=== PATIENT | female | born 1945 | race Caucasian/White ===

== ENCOUNTER 2017-03-16 07:34 | Emergency (ER) | payer MEDICARE, MEDICAID ==
[2017-03-16 07:51] VITALS: BP 145/85
--- NOTE | 2017-03-16 08:50 | UC ---
Abdominal Pain Female HPI - HPI Summary HPI Summary: 71 yo female with intermittent vomiting x 4 weeks estimates a 15 pound wt loss in that time no fever or chills denies abd pain some diarrhea she had a hx of endometrial cancer CT abd /pelvis 2016 was normal - History of Current Complaint Chief Complaint: UCGI Stated Complaint: SORE THROAT VOMITING DIARRHEA Time Seen by Provider: 03/16/17 08:22 Hx Obtained From: Patient Onset/Duration: Gradual Onset, Lasting Days Timing: Constant Severity Initially: Mild Severity Currently: None Pain Intensity: 0 Pain Scale Used: 0-10 Numeric Aggravating Factor(s): Food Alleviating Factor(s): Vomiting Associated Signs and Symptoms: Positive: Vomiting, Diarrhea Allergies/Adverse Reactions: Allergies Allergy/AdvReac Type Severity Reaction Status Date / Time No Known Allergies Allergy Verified 03/16/17 07:51 PMH/Surg Hx/FS Hx/Imm Hx Cancer History: Other Other Cancer History: endometrial - Surgical History Surgical History: Yes Surgery Procedure, Year, and Place: hystorectomy - Family History Known Family History: Positive: Hypertension - Social History Alcohol Use: None Substance Use Type: None Smoking Status (MU): Never Smoked Tobacco - Immunization History Most Recent Influenza Vaccination: none Most Recent Tetanus Shot: none Most Recent Pneumonia Vaccination: none Review of Systems Constitutional: Negative Skin: Negative Eyes: Negative ENT: Negative Respiratory: Negative Cardiovascular: Negative Gastrointestinal: Vomiting, Diarrhea Genitourinary: Negative Motor: Negative Neurovascular: Negative Musculoskeletal: Negative Neurological: Negative Psychological: Negative Is Patient Immunocompromised?: No All Other Systems Reviewed And Are Negative: Yes Physical Exam Triage Information Reviewed: Yes Appearance: No Pain Distress, Other: - pale Vital Signs: Initial Vital Signs Temp 98 F 03/16/17 07:43 Pulse 95 03/16/17 07:43 Resp 18 03/16/17 07:43 BP 145/85 03/16/17 07:43 Pulse Ox 98 03/16/17 07:43 Eyes: Positive: Conjunctiva Clear ENT: Positive: Hearing grossly normal. Negative: Nasal congestion, Nasal drainage Neck: Positive: Supple Respiratory: Positive: Lungs clear, Normal breath sounds, No respiratory distress Cardiovascular: Positive: RRR, No Murmur Abdomen Description: Positive: Nontender - denies being tender but grimaces during palpation, Hernia @ - large ventral hernia/LLQ firm Bowel Sounds: Positive: Present Neurological: Positive: Alert Skin Exam: Normal Abd Pain Female Course/Dx - Course Course Of Treatment: pt refuses to go to the ER. she has not seen a animal nutrition teacher because she does not trust any. I related my concerns re suspected severe anemia/wt loss and possiblity of Cancer. She still refuses to go to the ER. She states she will have lab work and my try to see someone in follow up - Differential Dx/Diagnosis Provider Diagnoses: wt loss/pallor/vomiting of uncertain cause. suspect cancer Discharge - Discharge Plan Condition: Stable Disposition: HOME Prescriptions: Ondansetron TAB* [Zofran Tab*] 4 mg PO Q6H PRN #10 tab PRN Reason: Nausea Patient Education Materials: Acute Nausea and Vomiting (ED) Ref[place]: [facility] [place] [facility] [Outside] (call this number to find a primary care doctor ) Ashvin Cortes MD [Medical Doctor] - (for evaluation of your wt loss and vomiting) Additional Instructions: As discussed: I am very concerned about you I thiink you should go to the ER for further evaluation You have declined to do so You are pale and I suspect anemic You may need a blood transfusion You need investigation of your weight loss and vomiting You history and physical suggests that your symptoms could very well be due to cancer blood work is pending Please reconsider your decision to not go to the ER If you don't go please seek follow up as soon as possible
[2017-03-16 12:30] LABS: ABS Basophils 0 10^3/ul (0-0.2); ABS Eosinophils 0.1 10^3/ul (0-0.6); ABS Lymphocytes 1.1 10^3/ul (1.0-4.8); ABS Monocytes 0.6 10^3/ul (0-0.8); ABS Neutrophils 3.7 10^3/ul (1.5-7.7); ABS Nucleated RBC 0 10^3/ul; Eosinophil % 2.4 % (0-6); Hematocrit 39 % (35-47); Hemoglobin 12.9 g/dl (12.0-16.0); Lymphocyte % 20.1 % (25-47); Mean Corpuscular HGB Conc 33 g/dl (31-36); Mean Corpuscular Hemoglobin 29 pg (27-31); Mean Corpuscular Volume 89 fL (80-97); Mean Platelet Volume 8 um3 (7.4-10.4); Nucleated Red Blood Cells % 0; Platelet Count 482 10^3/ul (150-450); Red Blood Count 4.39 10^6/ul (4.0-5.4); Red Cell Distribution Width 15 % (10.5-15); White Blood Count 5.5 10^3/ul (3.5-10.8)
[2017-03-16 12:54] LABS: EGFR Non-African American 59.4 (>60)
--- NOTE | 2017-03-17 08:51 | UC ---
- Progress Note Progress Note: This pt has mildly elevated platelets. dr hollins's note stated that he was very worried about this pt and wanted her to go to ed for philip nava. he definately wants her to be seen. so, please call her and tell her that her labs reveal a mild elevation of platelets and that she she definately follow up with a pcp. if she does not know the number for the referral service, please give her that number with instructions to follow up on sunday.
== END 2017-03-16 08:51 | disposition home or self-care (01) ==
LOC: UCEAST 07:34
DX: R63.4 Abnormal weight loss (principal); R23.1 Pallor; R11.10 Vomiting, unspecified; D47.3 Essential (hemorrhagic) thrombocythemia
CPT/HCPCS: 36415; 80053; 85025; 99212; G0463

== ENCOUNTER 2020-06-29 09:04 | Inpatient (IN) ==
[2020-06-29] MEDS ORDERED: NS 0.9% 1000 ml BAG 1,000 ML IV ONE (10:25)
[2020-06-29 10:56] LABS: ABS Eosinophils 0.2 10^3/ul (0-0.6); ABS Lymphocytes 1.3 10^3/ul (1.0-4.8); ABS Monocytes 0.7 10^3/ul (0-0.8); ABS Neutrophils 8.2 10^3/ul (1.5-7.7); Eosinophil % 1.6 %; Hematocrit 44 % (35-47); Hemoglobin 14.4 g/dL (12.0-16.0); Lymphocyte % 12.4 %; Mean Corpuscular HGB Conc 33 g/dL (31-36); Mean Corpuscular Hemoglobin 30 pg (27-31); Mean Corpuscular Volume 90 fL (80-97); Mean Platelet Volume 8.3 fL (7.4-10.4); Platelet Count 333 10^3/uL (150-450); Red Blood Count 4.86 10^6 /uL (3.70-4.87); Red Cell Distribution Width 14 % (10-15); White Blood Count 10.4 10^3/uL (3.5-10.8)
[2020-06-29 11:12] LABS: Albumin 4.2 g/dL (3.2-5.2); Albumin/Globulin Ratio 1.1 (1-3); C Reactive Protein 92.25 mg/L (<8.01); Calcium 9.7 mg/dL (8.6-10.3); EGFR African American 54.2 (>60); EGFR Non-African American 44.8 (>60); Globulin 3.9 g/dL (2-4); Potassium 3.7 mmol/L (3.5-5.0); Total Bilirubin 0.6 mg/dL (0.2-1.0); Total Protein 8.1 g/dL (6.4-8.9)
[2020-06-29] MEDS ORDERED: Ondansetron 4 mg VIAL 2 MG/ML 2 ml VIAL IV PRN (13:41)
[2020-06-29] MEDS ORDERED: Morphine 2 MG/ML SYRINGE IV PRN (13:41)
[2020-06-29] MEDS ORDERED: Amoxicillin/Clavul 875/125 TAB (Augmentin 875 tab) PO ONE (13:45)
[2020-06-29] MEDS ORDERED: Polyethylene Glycol 3350 17 GM PACKET PO PRN (13:58)
[2020-06-29] MEDS ORDERED: Senna TAB 8.6 mg TAB PO PRN (13:58)
[2020-06-29] MEDS ORDERED: Magnesium Hydroxide LIQ 30 ML UDC PO PRN (13:58)
[2020-06-29] MEDS ORDERED: Enoxaparin 40 MG/0.4 ML SYR SUBCUT SCH (14:00)
[2020-06-29 15:37] LABS: Troponin I 0.01 ng/mL (<0.03)
[2020-06-29] MEDS: Lactated Ringers 1000 ml BAG 1,000 ML IV SCH (16:47)
[2020-06-30] MEDS: Lactated Ringers 1000 ml BAG 1,000 ML IV SCH ×2 (03:33→20:00)
[2020-06-30 04:02] LABS: Urine Appearance Cloudy; Urine Bilirubin Negative (Negative); Urine Blood 2+ (Negative); Urine Color Yellow; Urine Glucose Negative (Negative); Urine Ketones Negative (Negative); Urine Nitrite Negative (Negative); Urine Protein 1+(30 mg/dL) (Negative); Urine Specific Gravity 1.018 (1.002-1.030); Urine Urobilinogen Negative (Negative)
[2020-06-30 04:10] LABS: Urine Bacteria 1+ (Absent); Urine Red Blood Cell 3+(>10/hpf) (Absent); Urine Renal Epithelial Cells Present (Absent); Urine Squamous Epithelial Cell Present (Absent); Urine White Blood Cell 3+(>20/hpf) (Absent)
[2020-06-30] MEDS: Amoxicillin/Clavul 875/125 TAB (Augmentin 875 tab) PO SCH ×2 (05:33→21:41)
[2020-06-30 07:04] LABS: INR 1.1 (0.82-1.09)
[2020-06-30 07:07] LABS: ABS Basophils 0.1 10^3/ul (0-0.2); ABS Eosinophils 0.4 10^3/ul (0-0.6); ABS Lymphocytes 1.1 10^3/ul (1.0-4.8); ABS Monocytes 0.6 10^3/ul (0-0.8); ABS Neutrophils 4.5 10^3/ul (1.5-7.7); Eosinophil % 6.1 %; Hematocrit 35 % (35-47); Hemoglobin 11.9 g/dL (12.0-16.0); Lymphocyte % 16.4 %; Mean Corpuscular HGB Conc 34 g/dL (31-36); Mean Corpuscular Hemoglobin 30 pg (27-31); Mean Corpuscular Volume 90 fL (80-97); Mean Platelet Volume 8.4 fL (7.4-10.4); Nucleated Red Blood Cells % 0.1; Platelet Count 277 10^3/uL (150-450); Red Blood Count 3.92 10^6 /uL (3.70-4.87); Red Cell Distribution Width 14 % (10-15); White Blood Count 6.6 10^3/uL (3.5-10.8)
[2020-06-30 07:14] LABS: Calcium 8.5 mg/dL (8.6-10.3); Potassium 3.8 mmol/L (3.5-5.0)
[2020-06-30 07:20] LABS: EGFR Non-African American 63.6 (>60)
[2020-06-30] MEDS ORDERED: ceFAZolin 2 GM PREMIX 2 GM/50 ML BAG ONE (14:18)
[2020-06-30] MEDS ORDERED: Bupivacaine 0.25% SDV 30 ML ONE (15:08)
[2020-06-30] MEDS ORDERED: fentaNYL 100 mcg/2 ml 50 MCG/ML VIAL ONE (15:25)
[2020-06-30] MEDS ORDERED: Midazolam 2 mg/2 ml VIAL 1 mg/ml 2 ml VIAL (2 mg) ONE (15:25)
[2020-06-30] MEDS ORDERED: Propofol 10 MG/ML 20 ML BTL ONE ×3 (15:26→16:36)
[2020-06-30] MEDS ORDERED: EPHEDrine (Pressors) 50 MG/ML VIAL ONE (16:36)
[2020-06-30] MEDS ORDERED: Bupivacaine 0.5% SDV PF 30ML VIAL ONE (16:36)
[2020-06-30] MEDS ORDERED: Naloxone 0.4 mg VIAL 0.4 mg/ml 1 ml VIAL IV PRN (17:00)
[2020-06-30] MEDS ORDERED: fentaNYL 100 mcg/2 ml 50 MCG/ML VIAL IV PRN (17:00)
[2020-06-30] MEDS ORDERED: HYDROmorphone 1 MG/1 ML SYRINGE IV PRN (17:00)
[2020-06-30] MEDS ORDERED: Acetaminophen IV 1 GM/100ML 1,000 MG/100 ML VIAL IVPB PRN (17:00)
[2020-06-30] MEDS ORDERED: Ondansetron 4 mg VIAL 2 MG/ML 2 ml VIAL IV PRN (17:00)
[2020-07-01] MEDS: ceFAZolin 1 GM X 3 DOSES POST-OP Q8H (AddVan) IVPB SCH ×3 (01:35→15:29)
[2020-07-01] MEDS: Amoxicillin/Clavul 875/125 TAB (Augmentin 875 tab) PO SCH ×2 (06:02→16:42)
[2020-07-01] MEDS: Lactated Ringers 1000 ml BAG 1,000 ML IV SCH ×2 (06:02→20:39)
[2020-07-01 06:54] LABS: ABS Eosinophils 0.2 10^3/ul (0-0.6); ABS Lymphocytes 0.8 10^3/ul (1.0-4.8); ABS Monocytes 0.7 10^3/ul (0-0.8); ABS Neutrophils 6.1 10^3/ul (1.5-7.7); Hematocrit 34 % (35-47); Hemoglobin 11.6 g/dL (12.0-16.0); Lymphocyte % 10.2 %; Mean Corpuscular HGB Conc 34 g/dL (31-36); Mean Corpuscular Hemoglobin 31 pg (27-31); Mean Corpuscular Volume 89 fL (80-97); Mean Platelet Volume 8.5 fL (7.4-10.4); Platelet Count 271 10^3/uL (150-450); Red Cell Distribution Width 13 % (10-15); White Blood Count 7.9 10^3/uL (3.5-10.8)
[2020-07-01 07:15] LABS: Calcium 8.5 mg/dL (8.6-10.3); EGFR African American 81.3 (>60); EGFR Non-African American 67.2 (>60); Magnesium 1.7 mg/dL (1.9-2.7); Potassium 3.8 mmol/L (3.5-5.0)
[2020-07-01] MEDS: Enoxaparin 40 MG/0.4 ML SYR SUBCUT SCH (07:50)
[2020-07-01] MEDS ORDERED: Magnesium Sulfate 2 gm BAG 2 GM/50 ML BAG IVPB ONE (08:37)
[2020-07-02 05:22] LABS: Calcium 8.4 mg/dL (8.6-10.3); EGFR African American 92.8 (>60); EGFR Non-African American 76.7 (>60)
[2020-07-02] MEDS: Amoxicillin/Clavul 875/125 TAB (Augmentin 875 tab) PO SCH (05:56)
[2020-07-02] MEDS: Lactated Ringers 1000 ml BAG 1,000 ML IV SCH (06:44)
[2020-07-02 08:11] VITALS: BP 166/79
[2020-07-02] MEDS: Enoxaparin 40 MG/0.4 ML SYR SUBCUT SCH (08:41)
== END 2020-07-02 10:35 | DRG 482 ==
LOC: ED 09:04 → SSU 12:59
PROVIDERS: ADMIT Internal Medicine; ATTEND Internal Medicine

== ENCOUNTER 2020-07-02 07:08 | Inpatient (IN) ==
[2020-07-02] MEDS ORDERED: Magnesium Hydroxide LIQ 30 ML UDC PO PRN (07:47)
[2020-07-02] MEDS ORDERED: Senna TAB 8.6 mg TAB PO PRN (07:47)
[2020-07-02] MEDS ORDERED: Polyethylene Glycol 3350 17 GM PACKET PO PRN (07:56)
[2020-07-02] MEDS ORDERED: Amoxicillin/Clavul 875/125 TAB (Augmentin 875 tab) PO SCH (09:00)
[2020-07-02] MEDS: Enoxaparin 40 MG/0.4 ML SYR SUBCUT SCH (11:34)
[2020-07-02] MEDS: Amoxicillin/Clavul 875/125 TAB (Augmentin 875 tab) PO SCH (20:48)
[2020-07-03] MEDS: Amoxicillin/Clavul 875/125 TAB (Augmentin 875 tab) PO SCH ×2 (07:54→20:22)
[2020-07-03] MEDS: Enoxaparin 40 MG/0.4 ML SYR SUBCUT SCH (07:54)
[2020-07-03 09:38] LABS: ABS Basophils 0.1 10^3/ul (0-0.2); ABS Eosinophils 0.3 10^3/ul (0-0.6); ABS Lymphocytes 0.8 10^3/ul (1.0-4.8); ABS Monocytes 0.4 10^3/ul (0-0.8); ABS Neutrophils 5.8 10^3/ul (1.5-7.7); Eosinophil % 4.2 %; Hematocrit 35 % (35-47); Hemoglobin 11.5 g/dL (12.0-16.0); Lymphocyte % 10.9 %; Mean Corpuscular HGB Conc 33 g/dL (31-36); Mean Corpuscular Hemoglobin 30 pg (27-31); Mean Corpuscular Volume 91 fL (80-97); Mean Platelet Volume 7.8 fL (7.4-10.4); Platelet Count 293 10^3/uL (150-450); Red Blood Count 3.88 10^6 /uL (3.70-4.87); Red Cell Distribution Width 14 % (10-15); White Blood Count 7.4 10^3/uL (3.5-10.8)
[2020-07-03 09:55] LABS: Albumin 3.2 g/dL (3.2-5.2); Calcium 8.9 mg/dL (8.6-10.3); EGFR African American 84.8 (>60); EGFR Non-African American 70.1 (>60); Globulin 3.2 g/dL (2-4); Potassium 3.8 mmol/L (3.5-5.0); Total Bilirubin 0.3 mg/dL (0.2-1.0); Total Protein 6.4 g/dL (6.4-8.9)
[2020-07-04] MEDS: Amoxicillin/Clavul 875/125 TAB (Augmentin 875 tab) PO SCH ×2 (08:50→21:21)
[2020-07-04] MEDS: Enoxaparin 40 MG/0.4 ML SYR SUBCUT SCH (08:51)
[2020-07-04] MEDS: Al Hydrox/Mg Hydrox/Simet LIQ 30 ML UDC PO PRN (16:11)
[2020-07-05 06:47] LABS: ABS Basophils 0.1 10^3/ul (0-0.2); ABS Eosinophils 0.3 10^3/ul (0-0.6); ABS Lymphocytes 0.9 10^3/ul (1.0-4.8); ABS Monocytes 0.7 10^3/ul (0-0.8); ABS Neutrophils 6.4 10^3/ul (1.5-7.7); Hematocrit 35 % (35-47); Hemoglobin 11.5 g/dL (12.0-16.0); Lymphocyte % 10.1 %; Mean Corpuscular HGB Conc 33 g/dL (31-36); Mean Corpuscular Hemoglobin 30 pg (27-31); Mean Corpuscular Volume 90 fL (80-97); Mean Platelet Volume 7.7 fL (7.4-10.4); Platelet Count 333 10^3/uL (150-450); Red Blood Count 3.83 10^6 /uL (3.70-4.87); Red Cell Distribution Width 14 % (10-15); White Blood Count 8.4 10^3/uL (3.5-10.8)
[2020-07-05] MEDS: Amoxicillin/Clavul 875/125 TAB (Augmentin 875 tab) PO SCH ×2 (07:43→19:50)
[2020-07-05] MEDS: Enoxaparin 40 MG/0.4 ML SYR SUBCUT SCH (07:44)
[2020-07-05] MEDS: Al Hydrox/Mg Hydrox/Simet LIQ 30 ML UDC PO PRN (19:56)
[2020-07-06] MEDS: Amoxicillin/Clavul 875/125 TAB (Augmentin 875 tab) PO SCH ×2 (10:04→21:04)
[2020-07-06] MEDS: Enoxaparin 40 MG/0.4 ML SYR SUBCUT SCH (10:05)
[2020-07-06] MEDS: Al Hydrox/Mg Hydrox/Simet LIQ 30 ML UDC PO PRN (21:04)
[2020-07-07 06:02] LABS: Albumin 3.3 g/dL (3.2-5.2); Calcium 8.9 mg/dL (8.6-10.3); EGFR African American 86.1 (>60); EGFR Non-African American 71.1 (>60); Globulin 3.4 g/dL (2-4); Potassium 4.4 mmol/L (3.5-5.0); Total Bilirubin 0.2 mg/dL (0.2-1.0); Total Protein 6.7 g/dL (6.4-8.9)
[2020-07-07] MEDS: Enoxaparin 40 MG/0.4 ML SYR SUBCUT SCH (08:53)
[2020-07-07] MEDS: Amoxicillin/Clavul 875/125 TAB (Augmentin 875 tab) PO SCH ×2 (08:53→21:08)
[2020-07-07] MEDS: Carbamide Peroxide 6.5% OTIC 15 ML BTL LEFT EAR SCH (21:08)
[2020-07-08] MEDS: Enoxaparin 40 MG/0.4 ML SYR SUBCUT SCH (08:12)
[2020-07-08] MEDS: Carbamide Peroxide 6.5% OTIC 15 ML BTL LEFT EAR SCH ×2 (08:16→21:05)
[2020-07-09] MEDS: Enoxaparin 40 MG/0.4 ML SYR SUBCUT SCH (08:12)
[2020-07-09] MEDS: Carbamide Peroxide 6.5% OTIC 15 ML BTL LEFT EAR SCH ×2 (08:15→19:22)
[2020-07-10] MEDS: Hemorrhoidal OINT 1 TUBE PR PRN ×2 (03:59→18:00)
[2020-07-10] MEDS: Enoxaparin 40 MG/0.4 ML SYR SUBCUT SCH (09:25)
[2020-07-10] MEDS: Carbamide Peroxide 6.5% OTIC 15 ML BTL LEFT EAR SCH ×2 (09:25→22:39)
[2020-07-11] MEDS: Carbamide Peroxide 6.5% OTIC 15 ML BTL LEFT EAR SCH ×2 (08:50→20:57)
[2020-07-11] MEDS: Enoxaparin 40 MG/0.4 ML SYR SUBCUT SCH (08:50)
[2020-07-11] MEDS: Hemorrhoidal OINT 1 TUBE PR PRN ×2 (08:50→21:00)
[2020-07-12 06:34] LABS: ABS Basophils 0.1 10^3/ul (0-0.2); ABS Eosinophils 0.3 10^3/ul (0-0.6); ABS Lymphocytes 1.2 10^3/ul (1.0-4.8); ABS Monocytes 0.6 10^3/ul (0-0.8); ABS Neutrophils 4.9 10^3/ul (1.5-7.7); Eosinophil % 4.6 %; Hematocrit 34 % (35-47); Hemoglobin 11.4 g/dL (12.0-16.0); Lymphocyte % 16.3 %; Mean Corpuscular HGB Conc 33 g/dL (31-36); Mean Corpuscular Hemoglobin 30 pg (27-31); Mean Corpuscular Volume 91 fL (80-97); Mean Platelet Volume 7.3 fL (7.4-10.4); Platelet Count 442 10^3/uL (150-450); Red Blood Count 3.75 10^6 /uL (3.70-4.87); Red Cell Distribution Width 14 % (10-15); White Blood Count 7.1 10^3/uL (3.5-10.8)
[2020-07-12] MEDS: Carbamide Peroxide 6.5% OTIC 15 ML BTL LEFT EAR SCH ×2 (07:26→22:01)
[2020-07-12] MEDS ORDERED: Enoxaparin 40 MG/0.4 ML SYR SUBCUT SCH (14:00)
[2020-07-12] MEDS: Hemorrhoidal OINT 1 TUBE PR PRN (22:00)
[2020-07-13 06:01] VITALS: BP 128/58
[2020-07-13] MEDS: Carbamide Peroxide 6.5% OTIC 15 ML BTL LEFT EAR SCH (08:30)
[2020-07-13] MEDS ORDERED: Enoxaparin 40 MG/0.4 ML SYR SUBCUT SCH (09:00)
== END 2020-07-13 16:10 | disposition home health service (06) | DRG 561 ==
LOC: PMRU 11:08 → UNDODISIN 07-13 16:10
PROVIDERS: ADMIT Physical Medicine & Rehabilitation; ATTEND Physical Medicine & Rehabilitation

== ENCOUNTER 2021-03-21 18:12 | Inpatient (IN) ==
[2021-03-21] MEDS ORDERED: Lactated Ringers 1000 ml BAG 1,000 ML IV ONE (18:43)
[2021-03-21 19:13] LABS: ABS Lymphocytes 0.9 10^3/ul (1.0-4.8); ABS Monocytes 0.6 10^3/ul (0-0.8); ABS Neutrophils 11.5 10^3/ul (1.5-7.7); Eosinophil % 0.1 %; Hematocrit 50 % (35-47); Hemoglobin 16.3 g/dL (12.0-16.0); Lymphocyte % 6.9 %; Mean Corpuscular HGB Conc 33 g/dL (31-36); Mean Corpuscular Hemoglobin 29 pg (27-31); Mean Corpuscular Volume 88 fL (80-97); Mean Platelet Volume 10.3 fL (7.4-10.4); Platelet Count 219 10^3/uL (150-450); Red Blood Count 5.63 10^6 /uL (3.70-4.87); Red Cell Distribution Width 16 % (10-15); White Blood Count 13.1 10^3/uL (3.5-10.8)
[2021-03-21 19:21] LABS: Activated Partial Thrombo Time 32.8 seconds (26.0-38.0); INR 1.07 (0.86-1.15)
[2021-03-21 19:30] LABS: Albumin 3.4 g/dL (3.2-5.2); Albumin/Globulin Ratio 0.8 (1-3); Calcium 9.6 mg/dL (8.6-10.3); Globulin 4.3 g/dL (2-4); Potassium 4.2 mmol/L (3.5-5.0); Total Bilirubin 0.5 mg/dL (0.2-1.0); Total Protein 7.7 g/dL (6.4-8.9); eGFR CKD-EPI 13.1 (>60)
[2021-03-21 19:31] LABS: Troponin I 0.02 ng/mL (<0.03)
[2021-03-21] MEDS ORDERED: NS 0.9% 1000 ml BAG 1,000 ML IV ONE (20:36)
[2021-03-21] MEDS ORDERED: Lactated Ringers 1000 ml BAG 1,000 ML IV SCH (22:00)
[2021-03-21 22:14] LABS: Rapid COVID-19 Molecular Undetected (Undetected)
[2021-03-21] MEDS: Heparin 5000 UNITS/ML 1 mL VIAL SUBCUT SCH (23:46)
[2021-03-21 23:47] LABS: Urine Creatinine Concentration 151.79 mg/dL
[2021-03-22 00:19] LABS: Urine Appearance Cloudy; Urine Bilirubin Negative (Negative); Urine Blood 3+ (Negative); Urine Color Amber; Urine Glucose Negative (Negative); Urine Ketones Negative (Negative); Urine Nitrite Negative (Negative); Urine Protein Negative (Negative); Urine Specific Gravity 1.016 (1.002-1.030); Urine Urobilinogen Negative (Negative)
[2021-03-22 00:27] LABS: Urine Bacteria 1+ (Absent); Urine Red Blood Cell 3+(>10/hpf) (Absent); Urine Squamous Epithelial Cell Present (Absent); Urine White Blood Cell 3+(>20/hpf) (Absent)
[2021-03-22 01:36] LABS: Calcium 8.4 mg/dL (8.6-10.3); Potassium 4.1 mmol/L (3.5-5.0); eGFR CKD-EPI 13.8 (>60)
[2021-03-22] MEDS: Heparin 5000 UNITS/ML 1 mL VIAL SUBCUT SCH ×3 (05:54→21:55)
[2021-03-22 06:50] LABS: ABS Lymphocytes 1.1 10^3/ul (1.0-4.8); ABS Monocytes 0.6 10^3/ul (0-0.8); ABS Neutrophils 10.4 10^3/ul (1.5-7.7); Eosinophil % 0.1 %; Hematocrit 42 % (35-47); Lymphocyte % 8.7 %; Mean Corpuscular HGB Conc 33 g/dL (31-36); Mean Corpuscular Hemoglobin 30 pg (27-31); Mean Corpuscular Volume 89 fL (80-97); Mean Platelet Volume 10.4 fL (7.4-10.4); Platelet Count 186 10^3/uL (150-450); Red Blood Count 4.77 10^6 /uL (3.70-4.87); Red Cell Distribution Width 16 % (10-15); White Blood Count 12.1 10^3/uL (3.5-10.8)
[2021-03-22 06:58] LABS: INR 1.11 (0.86-1.15)
[2021-03-22 07:05] LABS: Calcium 8.6 mg/dL (8.6-10.3); Potassium 4.1 mmol/L (3.5-5.0); eGFR CKD-EPI 14.4 (>60)
[2021-03-22] MEDS ORDERED: D5W 1000 ml BAG 1,000 ML IV SCH ×4 (08:00→22:49)
[2021-03-22 08:30] LABS: Magnesium 3.6 mg/dL (1.9-2.7)
[2021-03-22 12:43] LABS: CO2 Carbon Dioxide 19 mmol/L (22-32); Calcium 8.5 mg/dL (8.6-10.3); Glucose 126 mg/dL (70-100); eGFR CKD-EPI 15.8 (>60)
[2021-03-22 13:19] LABS: Anion Gap 15 mmol/L (2-11); Blood Urea Nitrogen 219 mg/dL (6-24); Chloride 120 mmol/L (101-111); Sodium 154 mmol/L (135-145)
[2021-03-22 16:13] LABS: Calcium 8.3 mg/dL (8.6-10.3); Potassium 3.7 mmol/L (3.5-5.0); eGFR CKD-EPI 16.1 (>60)
[2021-03-22] MEDS: D5W 1000 ml BAG 1,000 ML IV SCH ×2 (16:43→21:20)
[2021-03-22 21:23] LABS: Calcium 8.5 mg/dL (8.6-10.3); eGFR CKD-EPI 16.2 (>60)
[2021-03-22 21:28] LABS: Potassium 3.9 mmol/L (3.5-5.0)
[2021-03-23] MEDS ORDERED: Piperacillin/Tazobac ADVAN 3.375 GM in NS 0.9% 100 ml BAG 100 ML IV ONE (00:33)
[2021-03-23] MEDS ORDERED: Zosyn per Pharmacy NOTE FOLLOW UP SCH (01:00)
[2021-03-23] MEDS ORDERED: LACTATED RINGERS IV SCH (01:00)
[2021-03-23 01:48] LABS: Hematocrit 40 % (35-47); Hemoglobin 12.7 g/dL (12.0-16.0); Mean Corpuscular HGB Conc 32 g/dL (31-36); Mean Corpuscular Hemoglobin 29 pg (27-31); Mean Corpuscular Volume 91 fL (80-97); Mean Platelet Volume 10.3 fL (7.4-10.4); Platelet Count 134 10^3/uL (150-450); Red Blood Count 4.38 10^6 /uL (3.70-4.87); Red Cell Distribution Width 16 % (10-15); White Blood Count 25.2 10^3/uL (3.5-10.8)
[2021-03-23 01:55] LABS: Albumin 2.6 g/dL (3.2-5.2); Albumin/Globulin Ratio 0.8 (1-3); C Reactive Protein 124.99 mg/L (<8.01); Calcium 7.9 mg/dL (8.6-10.3); Globulin 3.2 g/dL (2-4); Potassium 3.5 mmol/L (3.5-5.0); Total Bilirubin 0.4 mg/dL (0.2-1.0); Total Protein 5.8 g/dL (6.4-8.9); eGFR CKD-EPI 14.7 (>60)
[2021-03-23] MEDS ORDERED: Hydrocortisone INJ 100 MG/2ML 2 ML VIAL IV ONE (01:58)
[2021-03-23 02:14] LABS: PCO2 Arterial 23 mmHg (35-45); PO2 Arterial 87 mmHg (80-100)
[2021-03-23] MEDS ORDERED: Remdesivir 100 mg Vial 200 MG in NS 0.9% 250 ml 210 ML IV ONE (02:20)
[2021-03-23 02:22] LABS: Troponin I 0.05 ng/mL (<0.03)
[2021-03-23 02:39] LABS: Phosphorus 2.8 mg/dL (2.5-5.0)
[2021-03-23 02:50] LABS: RBC Morphology Normal (Normal)
[2021-03-23 02:51] LABS: ABS Lymphocytes 0.4 10^3/ul (1.0-4.8); ABS Monocytes 0.2 10^3/ul (0-0.8); ABS Neutrophils 24.6 10^3/ul (1.5-7.7); Eosinophil % 0.1 %; Lymphocyte % 1.5 %
[2021-03-23] MEDS: Norepinephrine 16MCG/ML BAG NS 4,000 MCG/250 ML BAG IV SCH ×4 (03:39→17:07)
[2021-03-23 03:48] LABS: Urine Appearance Turbid; Urine Bilirubin Negative (Negative); Urine Blood 3+ (Negative); Urine Color Yellow; Urine Glucose Negative (Negative); Urine Ketones Negative (Negative); Urine Nitrite Negative (Negative); Urine Protein 2+(100 mg/dL) (Negative); Urine Specific Gravity 1.014 (1.002-1.030); Urine Urobilinogen Negative (Negative)
[2021-03-23] MEDS ORDERED: NORMOSOL-R pH 7.4 1000 mL BAG 1,000 ML IV SCH (04:00)
[2021-03-23 04:08] LABS: Urine Bacteria 3+ (Absent); Urine Red Blood Cell 3+(>10/hpf) (Absent); Urine White Blood Cell 3+(>20/hpf) (Absent)
[2021-03-23] MEDS: ZOSYN 3.375 GM Q12H per EXTENDED INFUSION IV SCH ×2 (05:40→17:07)
[2021-03-23 06:14] LABS: Hematocrit 35 % (35-47); Hemoglobin 11.7 g/dL (12.0-16.0); Mean Corpuscular HGB Conc 33 g/dL (31-36); Mean Corpuscular Hemoglobin 29 pg (27-31); Mean Corpuscular Volume 87 fL (80-97); Mean Platelet Volume 9.8 fL (7.4-10.4); Platelet Count 153 10^3/uL (150-450); Red Blood Count 4.04 10^6 /uL (3.70-4.87); Red Cell Distribution Width 16 % (10-15)
[2021-03-23 06:24] LABS: Calcium 7.6 mg/dL (8.6-10.3); Magnesium 2.8 mg/dL (1.9-2.7); Potassium 3.7 mmol/L (3.5-5.0)
[2021-03-23 06:25] LABS: ABS Lymphocytes 0.7 10^3/ul (1.0-4.8); ABS Monocytes 0.5 10^3/ul (0-0.8); ABS Neutrophils 45.8 10^3/ul (1.5-7.7); Eosinophil % 0.1 %; Lymphocyte % 1.4 %; Nucleated Red Blood Cells % 0.1
[2021-03-23] MEDS ORDERED: NORMOSOL-R pH 7.4 1000 mL BAG 500 ML IV SCH (07:00)
[2021-03-23] MEDS: Heparin 5000 UNITS/ML 1 mL VIAL SUBCUT SCH ×3 (08:13→23:53)
[2021-03-23] MEDS: Hydrocortisone INJ 100 MG/2ML 2 ML VIAL IV SCH ×2 (08:14→17:16)
[2021-03-23] MEDS: Pantoprazole VIAL 40 MG VIAL IV SCH (08:14)
[2021-03-23] MEDS ORDERED: D5W 1/2 NS 1000 ml BAG 1,000 ML IV SCH ×2 (09:00→23:00)
[2021-03-23 10:07] LABS: Phosphorus 4.5 mg/dL (2.5-5.0)
[2021-03-23 10:23] LABS: TSH Ultra Thyroid Stim Horm 1.86 mcIU/mL (0.34-5.60)
[2021-03-23 15:19] LABS: Urine Potassium Concentration 24.3 mmol/L
[2021-03-23 15:42] LABS: Urine Benzodiazepine Screen None Detected (None Detect); Urine Cannabinoids Screen None Detected (None Detect); Urine Opiates Screen None Detected (None Detect)
[2021-03-23 20:24] LABS: Urine Buprenorphine Screen None Detected (None Detect); Urine Fentanyl Screen None Detected (None Detect); Urine Hydrocodone Screen None Detected (None Detect)
[2021-03-23 20:48] LABS: Hematocrit 36 % (35-47); Hemoglobin 11.8 g/dL (12.0-16.0); Mean Corpuscular HGB Conc 32 g/dL (31-36); Mean Corpuscular Hemoglobin 28 pg (27-31); Mean Corpuscular Volume 88 fL (80-97); Mean Platelet Volume 9.7 fL (7.4-10.4); Platelet Count 149 10^3/uL (150-450); Red Blood Count 4.14 10^6 /uL (3.70-4.87); Red Cell Distribution Width 16 % (10-15); White Blood Count 39.7 10^3/uL (3.5-10.8)
[2021-03-23 21:17] LABS: ABS Monocytes 0.6 10^3/ul (0-0.8); ABS Nucleated RBC 0.4 10^3/ul; Lymphocyte % 2.5 %; Nucleated Red Blood Cells % 1.1
[2021-03-24] MEDS: Hydrocortisone INJ 100 MG/2ML 2 ML VIAL IV SCH ×3 (02:09→17:30)
[2021-03-24] MEDS: Acetaminophen IV 1 GM/100ML 100 ML IV PRN (03:14)
[2021-03-24 05:32] LABS: Hematocrit 39 % (35-47); Hemoglobin 11.9 g/dL (12.0-16.0); Mean Corpuscular HGB Conc 31 g/dL (31-36); Mean Corpuscular Hemoglobin 29 pg (27-31); Mean Corpuscular Volume 95 fL (80-97); Mean Platelet Volume 10.1 fL (7.4-10.4); Platelet Count 146 10^3/uL (150-450); Red Blood Count 4.08 10^6 /uL (3.70-4.87); Red Cell Distribution Width 18 % (10-15)
[2021-03-24 05:34] LABS: ABS Lymphocytes 0.8 10^3/ul (1.0-4.8); ABS Monocytes 0.5 10^3/ul (0-0.8); ABS Neutrophils 27.7 10^3/ul (1.5-7.7); Lymphocyte % 2.9 %
[2021-03-24 05:43] LABS: ALT 32 U/L (7-52); AST 58 U/L (13-39); Albumin 2.5 g/dL (3.2-5.2); Albumin/Globulin Ratio 0.7 (1-3); Alkaline Phosphatase 64 U/L (35-149); CO2 Carbon Dioxide 18 mmol/L (22-32); Calcium 7.8 mg/dL (8.6-10.3); Globulin 3.4 g/dL (2-4); Glucose 103 mg/dL (70-100); Magnesium 2.9 mg/dL (1.9-2.7); Phosphorus 3.9 mg/dL (2.5-5.0); Potassium 3.4 mmol/L (3.5-5.0); Total Protein 5.9 g/dL (6.4-8.9); eGFR CKD-EPI 21.7 (>60)
[2021-03-24 05:46] LABS: Anion Gap 12 mmol/L (2-11); Chloride 126 mmol/L (101-111); Sodium 156 mmol/L (135-145)
[2021-03-24] MEDS ORDERED: D5W 500 ml BAG 500 ML IV ONE (05:48)
[2021-03-24] MEDS ORDERED: D5W 1000 ml BAG 1,000 ML IV SCH (06:00)
[2021-03-24 06:12] LABS: Blood Urea Nitrogen 149 mg/dL (6-24)
[2021-03-24] MEDS: ZOSYN 3.375 GM Q12H per EXTENDED INFUSION IV SCH (06:23)
[2021-03-24] MEDS: Heparin 5000 UNITS/ML 1 mL VIAL SUBCUT SCH ×3 (07:02→22:32)
[2021-03-24] MEDS: Pantoprazole VIAL 40 MG VIAL IV SCH (08:47)
[2021-03-24] MEDS ORDERED: Remdesivir 100 mg Vial 100 MG in NS 0.9% 250 ml 230 ML IV SCH (09:00)
[2021-03-24 10:01] LABS: Alcohol, S < 13 mg/dL (<13)
[2021-03-24 10:27] LABS: Vitamin B12 591 pg/mL (180-914)
[2021-03-24] MEDS: cefTRIAXone 1 gm/50 mL NS BAG 1 GM/50 ML BAG IVPB SCH (11:04)
[2021-03-24] MEDS: Ondansetron 4 mg VIAL 2 MG/ML 2 ml VIAL ONE ×2 (13:17→13:22)
[2021-03-24] MEDS ORDERED: Trimethobenzamide *IM* 100 mg/ml 2 ml VIAL (200 mg) IM ONE (13:22)
[2021-03-24 15:06] LABS: Urine Creatinine Concentration 27.07 mg/dL; Urine Potassium Concentration 19.7 mmol/L
[2021-03-24 15:21] LABS: Urine Appearance Turbid; Urine Bilirubin Negative (Negative); Urine Blood 3+ (Negative); Urine Color Yellow; Urine Glucose Negative (Negative); Urine Ketones Negative (Negative); Urine Nitrite Negative (Negative); Urine Protein 1+(30 mg/dL) (Negative); Urine Specific Gravity 1.014 (1.002-1.030); Urine Urobilinogen Negative (Negative)
[2021-03-24 15:22] LABS: Calcium 7.6 mg/dL (8.6-10.3); Potassium 3.3 mmol/L (3.5-5.0)
[2021-03-24 15:27] LABS: eGFR CKD-EPI 23.2 (>60)
[2021-03-24 15:34] LABS: Urine Amorphous Crystals Present (Absent); Urine Bacteria 2+ (Absent); Urine Red Blood Cell 3+(>10/hpf) (Absent); Urine Squamous Epithelial Cell Present (Absent); Urine White Blood Cell 3+(>20/hpf) (Absent); Urine Yeast Present (Absent)
[2021-03-24] MEDS: D5W 1000 ml BAG 1,000 ML IV SCH (18:00)
[2021-03-25] MEDS: Hydrocortisone INJ 100 MG/2ML 2 ML VIAL IV SCH ×3 (03:11→20:41)
[2021-03-25] MEDS: Acetaminophen IV 1 GM/100ML 100 ML IV PRN (03:25)
[2021-03-25 04:33] LABS: Hematocrit 34 % (35-47); Hemoglobin 11.2 g/dL (12.0-16.0); Mean Corpuscular HGB Conc 33 g/dL (31-36); Mean Corpuscular Hemoglobin 29 pg (27-31); Mean Corpuscular Volume 88 fL (80-97); Mean Platelet Volume 9.7 fL (7.4-10.4); Platelet Count 123 10^3/uL (150-450); Red Blood Count 3.88 10^6 /uL (3.70-4.87); Red Cell Distribution Width 16 % (10-15); White Blood Count 21.2 10^3/uL (3.5-10.8)
[2021-03-25 04:48] LABS: Albumin 2.3 g/dL (3.2-5.2); Albumin/Globulin Ratio 0.7 (1-3); Calcium 7.8 mg/dL (8.6-10.3); Globulin 3.4 g/dL (2-4); Magnesium 2.5 mg/dL (1.9-2.7); Phosphorus 3.3 mg/dL (2.5-5.0); Potassium 2.9 mmol/L (3.5-5.0); Total Bilirubin 0.3 mg/dL (0.2-1.0); Total Protein 5.7 g/dL (6.4-8.9); eGFR CKD-EPI 26.7 (>60)
[2021-03-25] MEDS: D5W 1000 ml BAG 1,000 ML IV SCH ×2 (05:14→21:27)
[2021-03-25] MEDS: KCL 20 MEQ/100 ML IVPREMIX 20 MEQ/100 ML BAG IV SCH ×3 (05:28→12:00)
[2021-03-25] MEDS: Heparin 5000 UNITS/ML 1 mL VIAL SUBCUT SCH ×3 (06:43→20:40)
[2021-03-25] MEDS: cefTRIAXone 1 gm/50 mL NS BAG 1 GM/50 ML BAG IVPB SCH (08:10)
[2021-03-25] MEDS: Pantoprazole VIAL 40 MG VIAL IV SCH (08:21)
[2021-03-25 09:25] LABS: INR 1.35 (0.86-1.15)
[2021-03-25 21:25] LABS: Calcium 7.7 mg/dL (8.6-10.3); Potassium 3.2 mmol/L (3.5-5.0)
[2021-03-26 04:08] LABS: ABS Lymphocytes 0.8 10^3/ul (1.0-4.8); ABS Monocytes 0.4 10^3/ul (0-0.8); ABS Neutrophils 17.1 10^3/ul (1.5-7.7); Hematocrit 34 % (35-47); Hemoglobin 11.4 g/dL (12.0-16.0); Lymphocyte % 4.3 %; Mean Corpuscular HGB Conc 33 g/dL (31-36); Mean Corpuscular Hemoglobin 29 pg (27-31); Mean Corpuscular Volume 88 fL (80-97); Platelet Count 113 10^3/uL (150-450); Red Blood Count 3.88 10^6 /uL (3.70-4.87); Red Cell Distribution Width 16 % (10-15); White Blood Count 18.3 10^3/uL (3.5-10.8)
[2021-03-26 04:24] LABS: Albumin 2.3 g/dL (3.2-5.2); Albumin/Globulin Ratio 0.7 (1-3); Calcium 7.8 mg/dL (8.6-10.3); Globulin 3.5 g/dL (2-4); Magnesium 2.1 mg/dL (1.9-2.7); Phosphorus 2.7 mg/dL (2.5-5.0); Potassium 3.5 mmol/L (3.5-5.0); Total Bilirubin 0.3 mg/dL (0.2-1.0); Total Protein 5.8 g/dL (6.4-8.9); eGFR CKD-EPI 39.6 (>60)
[2021-03-26] MEDS: Heparin 5000 UNITS/ML 1 mL VIAL SUBCUT SCH ×3 (06:04→21:56)
[2021-03-26] MEDS ORDERED: Potassium Chlor 20 meq TAB.ER PO ONE (08:15)
[2021-03-26] MEDS: Hydrocortisone INJ 100 MG/2ML 2 ML VIAL IV SCH (08:59)
[2021-03-26] MEDS: cefTRIAXone 1 gm/50 mL NS BAG 1 GM/50 ML BAG IVPB SCH (09:01)
[2021-03-26] MEDS: Pantoprazole VIAL 40 MG VIAL IV SCH (09:01)
[2021-03-26] MEDS ORDERED: KCL 20 MEQ/100 ML IVPREMIX 20 MEQ/100 ML BAG IV ONE (09:03)
[2021-03-26] MEDS ORDERED: Ondansetron 4 mg VIAL 2 MG/ML 2 ml VIAL ONE (09:08)
[2021-03-26] MEDS ORDERED: KCL 20 MEQ/100 ML IVPREMIX 20 MEQ/100 ML BAG ONE (09:08)
[2021-03-26] MEDS: Ondansetron 4 mg VIAL 2 MG/ML 2 ml VIAL IV PRN (09:12)
[2021-03-26] MEDS: D5W NS 0.9% 40Meq KCL 1000 ml 1,000 ML IV SCH (13:04)
[2021-03-26] MEDS: Acetaminophen IV 1 GM/100ML 100 ML IV PRN (21:58)
[2021-03-27] MEDS: D5W NS 0.9% 40Meq KCL 1000 ml 1,000 ML IV SCH ×2 (03:27→15:49)
[2021-03-27] MEDS: Heparin 5000 UNITS/ML 1 mL VIAL SUBCUT SCH ×3 (05:31→20:38)
[2021-03-27 06:07] LABS: Albumin 2.1 g/dL (3.2-5.2); Albumin/Globulin Ratio 0.7 (1-3); Calcium 7.4 mg/dL (8.6-10.3); Globulin 3.2 g/dL (2-4); Potassium 3.8 mmol/L (3.5-5.0); Total Bilirubin 0.4 mg/dL (0.2-1.0); Total Protein 5.3 g/dL (6.4-8.9); eGFR CKD-EPI 46.3 (>60)
[2021-03-27] MEDS: Pantoprazole VIAL 40 MG VIAL IV SCH (08:25)
[2021-03-27] MEDS: cefTRIAXone 1 gm/50 mL NS BAG 1 GM/50 ML BAG IVPB SCH (08:54)
[2021-03-27] MEDS: Acetaminophen IV 1 GM/100ML 100 ML IV PRN ×2 (12:39→20:45)
[2021-03-27] MEDS: Nystatin TOP POWDER 15 GM BTL TOPICAL SCH ×2 (14:05→21:22)
[2021-03-27] MEDS: Famotidine IV 10 MG/ML 2 ml VIAL (20 mg) IV SLOW PU SCH (20:38)
[2021-03-28] MEDS: Heparin 5000 UNITS/ML 1 mL VIAL SUBCUT SCH ×3 (05:07→21:36)
[2021-03-28 05:13] LABS: ABS Eosinophils 0.2 10^3/ul (0-0.6); ABS Lymphocytes 0.6 10^3/ul (1.0-4.8); ABS Monocytes 0.4 10^3/ul (0-0.8); ABS Neutrophils 15.1 10^3/ul (1.5-7.7); Eosinophil % 1.4 %; Hematocrit 34 % (35-47); Hemoglobin 11.1 g/dL (12.0-16.0); Lymphocyte % 3.4 %; Mean Corpuscular HGB Conc 33 g/dL (31-36); Mean Corpuscular Hemoglobin 29 pg (27-31); Mean Corpuscular Volume 88 fL (80-97); Mean Platelet Volume 10.7 fL (7.4-10.4); Platelet Count 109 10^3/uL (150-450); Red Blood Count 3.83 10^6 /uL (3.70-4.87); Red Cell Distribution Width 16 % (10-15); White Blood Count 16.3 10^3/uL (3.5-10.8)
[2021-03-28 05:36] LABS: Albumin 2.1 g/dL (3.2-5.2); Albumin/Globulin Ratio 0.7 (1-3); Calcium 7.2 mg/dL (8.6-10.3); Globulin 3.2 g/dL (2-4); Potassium 3.8 mmol/L (3.5-5.0); Total Bilirubin 0.4 mg/dL (0.2-1.0); Total Protein 5.3 g/dL (6.4-8.9); eGFR CKD-EPI 61.7 (>60)
[2021-03-28] MEDS: Pantoprazole VIAL 40 MG VIAL IV SCH (08:22)
[2021-03-28] MEDS: cefTRIAXone 1 gm/50 mL NS BAG 1 GM/50 ML BAG IVPB SCH (08:22)
[2021-03-28] MEDS: Al Hydrox/Mg Hydrox/Simet LIQ 30 ML UDC PO PRN (08:33)
[2021-03-28] MEDS: Acetaminophen IV 1 GM/100ML 100 ML IV PRN ×2 (09:36→22:43)
[2021-03-28] MEDS: Nystatin TOP POWDER 15 GM BTL TOPICAL SCH ×3 (09:36→21:35)
[2021-03-28] MEDS: D5W NS 0.9% 40Meq KCL 1000 ml 1,000 ML IV SCH (11:13)
[2021-03-28] MEDS: Famotidine IV 10 MG/ML 2 ml VIAL (20 mg) IV SLOW PU SCH (21:37)
[2021-03-29] MEDS ORDERED: Benzocaine (DENTAL) 10% TOP.GEL TOPICAL PRN (00:44)
[2021-03-29] MEDS: Benzocaine/Menthol LOZ MT PRN (01:36)
[2021-03-29] MEDS: Heparin 5000 UNITS/ML 1 mL VIAL SUBCUT SCH ×3 (05:01→21:15)
[2021-03-29 05:33] LABS: ABS Eosinophils 0.3 10^3/ul (0-0.6); ABS Lymphocytes 0.6 10^3/ul (1.0-4.8); ABS Monocytes 0.4 10^3/ul (0-0.8); ABS Neutrophils 11.8 10^3/ul (1.5-7.7); Eosinophil % 2.2 %; Hematocrit 32 % (35-47); Hemoglobin 10.5 g/dL (12.0-16.0); Lymphocyte % 4.8 %; Mean Corpuscular HGB Conc 33 g/dL (31-36); Mean Corpuscular Hemoglobin 29 pg (27-31); Mean Corpuscular Volume 88 fL (80-97); Mean Platelet Volume 10.8 fL (7.4-10.4); Platelet Count 154 10^3/uL (150-450); Red Blood Count 3.64 10^6 /uL (3.70-4.87); Red Cell Distribution Width 16 % (10-15); White Blood Count 13.2 10^3/uL (3.5-10.8)
[2021-03-29 05:49] LABS: Calcium 7.3 mg/dL (8.6-10.3); eGFR CKD-EPI 58.8 (>60)
[2021-03-29] MEDS: Pantoprazole VIAL 40 MG VIAL IV SCH (09:02)
[2021-03-29] MEDS: Nystatin TOP POWDER 15 GM BTL TOPICAL SCH ×3 (09:03→21:18)
[2021-03-29] MEDS: cefTRIAXone 1 gm/50 mL NS BAG 1 GM/50 ML BAG IVPB SCH (09:03)
[2021-03-29] MEDS: Ondansetron 4 mg VIAL 2 MG/ML 2 ml VIAL IV PRN (14:15)
[2021-03-29] MEDS: Famotidine IV 10 MG/ML 2 ml VIAL (20 mg) IV SLOW PU SCH (21:08)
[2021-03-29] MEDS: Nystatin SUSPENSION 100,000 UNITS/ML UDC PO SCH (21:12)
[2021-03-29] MEDS: Carbamide Peroxide 6.5% OTIC 15 ML BTL BOTH EARS SCH (21:18)
[2021-03-30] MEDS: Benzocaine/Menthol LOZ MT PRN ×2 (00:09→13:05)
[2021-03-30] MEDS: Heparin 5000 UNITS/ML 1 mL VIAL SUBCUT SCH ×3 (05:08→22:02)
[2021-03-30 05:37] LABS: ABS Basophils 0.1 10^3/ul (0-0.2); ABS Eosinophils 0.3 10^3/ul (0-0.6); ABS Lymphocytes 0.7 10^3/ul (1.0-4.8); ABS Monocytes 0.4 10^3/ul (0-0.8); ABS Neutrophils 7.6 10^3/ul (1.5-7.7); Eosinophil % 3.7 %; Hematocrit 31 % (35-47); Hemoglobin 10.2 g/dL (12.0-16.0); Lymphocyte % 7.5 %; Mean Corpuscular HGB Conc 33 g/dL (31-36); Mean Corpuscular Hemoglobin 29 pg (27-31); Mean Corpuscular Volume 88 fL (80-97); Mean Platelet Volume 9.9 fL (7.4-10.4); Nucleated Red Blood Cells % 0.1; Platelet Count 217 10^3/uL (150-450); Red Cell Distribution Width 16 % (10-15); White Blood Count 9.1 10^3/uL (3.5-10.8)
[2021-03-30 06:06] LABS: Calcium 7.5 mg/dL (8.6-10.3); Potassium 3.9 mmol/L (3.5-5.0); eGFR CKD-EPI 62.5 (>60)
[2021-03-30] MEDS: Nystatin TOP POWDER 15 GM BTL TOPICAL SCH ×3 (08:33→22:02)
[2021-03-30] MEDS: Pantoprazole VIAL 40 MG VIAL IV SCH ×2 (08:33→08:45)
[2021-03-30] MEDS: Carbamide Peroxide 6.5% OTIC 15 ML BTL BOTH EARS SCH ×2 (08:33→22:02)
[2021-03-30] MEDS: Nystatin SUSPENSION 100,000 UNITS/ML UDC PO SCH ×4 (08:34→22:02)
[2021-03-30] MEDS: Famotidine IV 10 MG/ML 2 ml VIAL (20 mg) IV SLOW PU SCH (22:02)
[2021-03-31] MEDS: Heparin 5000 UNITS/ML 1 mL VIAL SUBCUT SCH ×3 (06:42→22:44)
[2021-03-31 07:20] LABS: Rapid COVID-19 Molecular Undetected (Undetected)
[2021-03-31] MEDS: Pantoprazole VIAL 40 MG VIAL IV SCH (09:55)
[2021-03-31] MEDS: Nystatin TOP POWDER 15 GM BTL TOPICAL SCH ×3 (09:56→22:44)
[2021-03-31] MEDS: Nystatin SUSPENSION 100,000 UNITS/ML UDC PO SCH ×5 (09:56→22:44)
[2021-03-31] MEDS: Carbamide Peroxide 6.5% OTIC 15 ML BTL BOTH EARS SCH ×2 (10:01→22:44)
[2021-03-31] MEDS: Ondansetron 4 mg VIAL 2 MG/ML 2 ml VIAL IV PRN (14:03)
[2021-03-31] MEDS: Famotidine IV 10 MG/ML 2 ml VIAL (20 mg) IV SLOW PU SCH (22:44)
[2021-04-01] MEDS: Heparin 5000 UNITS/ML 1 mL VIAL SUBCUT SCH ×3 (05:32→21:26)
[2021-04-01] MEDS: Pantoprazole VIAL 40 MG VIAL IV SCH (09:57)
[2021-04-01] MEDS: Nystatin SUSPENSION 100,000 UNITS/ML UDC PO SCH ×4 (09:57→21:26)
[2021-04-01] MEDS: Carbamide Peroxide 6.5% OTIC 15 ML BTL BOTH EARS SCH ×2 (10:05→21:26)
[2021-04-01] MEDS: Nystatin TOP POWDER 15 GM BTL TOPICAL SCH ×3 (10:06→21:26)
[2021-04-01] MEDS ORDERED: COVID-19 VACCINE, MRNA(MODERNA)/PF 100 MCG/0.5 ML IM ONE (11:55)
[2021-04-01] MEDS: Amoxicillin/Clavul 875/125 TAB (Augmentin 875 tab) PO SCH ×2 (12:29→21:26)
[2021-04-02] MEDS: Ondansetron 4 mg VIAL 2 MG/ML 2 ml VIAL IV PRN (01:50)
[2021-04-02] MEDS: Heparin 5000 UNITS/ML 1 mL VIAL SUBCUT SCH ×3 (05:45→21:58)
[2021-04-02 08:23] LABS: ABS Basophils 0.1 10^3/ul (0-0.2); ABS Eosinophils 0.2 10^3/ul (0-0.6); ABS Lymphocytes 0.8 10^3/ul (1.0-4.8); ABS Monocytes 0.6 10^3/ul (0-0.8); ABS Neutrophils 5.5 10^3/ul (1.5-7.7); Eosinophil % 2.4 %; Hematocrit 30 % (35-47); Hemoglobin 10.1 g/dL (12.0-16.0); Lymphocyte % 11.8 %; Mean Corpuscular HGB Conc 34 g/dL (31-36); Mean Corpuscular Hemoglobin 30 pg (27-31); Mean Corpuscular Volume 89 fL (80-97); Platelet Count 426 10^3/uL (150-450); Red Blood Count 3.37 10^6 /uL (3.70-4.87); Red Cell Distribution Width 16 % (10-15); White Blood Count 7.1 10^3/uL (3.5-10.8)
[2021-04-02 08:42] LABS: Potassium 3.6 mmol/L (3.5-5.0); eGFR CKD-EPI 74.5 (>60)
[2021-04-02] MEDS: Amoxicillin/Clavul 875/125 TAB (Augmentin 875 tab) PO SCH ×2 (09:43→21:58)
[2021-04-02] MEDS: Nystatin SUSPENSION 100,000 UNITS/ML UDC PO SCH ×4 (09:44→21:58)
[2021-04-02] MEDS: Nystatin TOP POWDER 15 GM BTL TOPICAL SCH ×3 (09:44→21:58)
[2021-04-02] MEDS: Carbamide Peroxide 6.5% OTIC 15 ML BTL BOTH EARS SCH ×2 (09:44→21:58)
[2021-04-02] MEDS: Al Hydrox/Mg Hydrox/Simet LIQ 30 ML UDC PO PRN (13:54)
[2021-04-03] MEDS: Heparin 5000 UNITS/ML 1 mL VIAL SUBCUT SCH ×3 (05:42→20:33)
[2021-04-03] MEDS: Nystatin SUSPENSION 100,000 UNITS/ML UDC PO SCH ×4 (08:02→20:33)
[2021-04-03] MEDS: Amoxicillin/Clavul 875/125 TAB (Augmentin 875 tab) PO SCH ×2 (08:02→20:33)
[2021-04-03] MEDS: Nystatin TOP POWDER 15 GM BTL TOPICAL SCH ×3 (08:05→20:32)
[2021-04-03] MEDS: Carbamide Peroxide 6.5% OTIC 15 ML BTL BOTH EARS SCH ×2 (08:05→20:33)
[2021-04-04] MEDS: Heparin 5000 UNITS/ML 1 mL VIAL SUBCUT SCH ×3 (05:20→21:18)
[2021-04-04] MEDS: Amoxicillin/Clavul 875/125 TAB (Augmentin 875 tab) PO SCH ×2 (08:57→21:17)
[2021-04-04] MEDS: Carbamide Peroxide 6.5% OTIC 15 ML BTL BOTH EARS SCH ×2 (09:01→21:18)
[2021-04-04] MEDS: Nystatin SUSPENSION 100,000 UNITS/ML UDC PO SCH ×4 (09:03→21:17)
[2021-04-04] MEDS: Nystatin TOP POWDER 15 GM BTL TOPICAL SCH ×3 (09:04→21:19)
[2021-04-04] MEDS: Calcium Carb (TUMS) 500 mg CHEW TAB PO PRN ×2 (13:26→21:32)
[2021-04-05] MEDS: Heparin 5000 UNITS/ML 1 mL VIAL SUBCUT SCH ×3 (05:50→22:19)
[2021-04-05 06:39] LABS: Calcium 8.8 mg/dL (8.6-10.3); Magnesium 1.8 mg/dL (1.9-2.7); Potassium 3.6 mmol/L (3.5-5.0)
[2021-04-05 06:44] LABS: eGFR CKD-EPI 80.4 (>60)
[2021-04-05 06:54] LABS: ABS Eosinophils 0.2 10^3/ul (0-0.6); ABS Lymphocytes 0.6 10^3/ul (1.0-4.8); ABS Monocytes 0.4 10^3/ul (0-0.8); ABS Neutrophils 3.1 10^3/ul (1.5-7.7); Eosinophil % 4.4 %; Hematocrit 30 % (35-47); Hemoglobin 10.1 g/dL (12.0-16.0); Lymphocyte % 13.3 %; Mean Corpuscular HGB Conc 33 g/dL (31-36); Mean Corpuscular Hemoglobin 30 pg (27-31); Mean Corpuscular Volume 90 fL (80-97); Platelet Count 448 10^3/uL (150-450); Red Blood Count 3.39 10^6 /uL (3.70-4.87); Red Cell Distribution Width 15 % (10-15); White Blood Count 4.4 10^3/uL (3.5-10.8)
[2021-04-05] MEDS: Calcium Carb (TUMS) 500 mg CHEW TAB PO PRN (09:22)
[2021-04-05] MEDS: Amoxicillin/Clavul 875/125 TAB (Augmentin 875 tab) PO SCH ×2 (09:22→10:20)
[2021-04-05] MEDS: Nystatin SUSPENSION 100,000 UNITS/ML UDC PO SCH ×4 (09:22→18:05)
[2021-04-05] MEDS: Potassium Chlor 20 meq TAB.ER PO ONE ×2 (09:22→10:22)
[2021-04-05] MEDS: Nystatin TOP POWDER 15 GM BTL TOPICAL SCH ×3 (09:23→22:19)
[2021-04-05] MEDS: Carbamide Peroxide 6.5% OTIC 15 ML BTL BOTH EARS SCH ×2 (09:24→22:19)
[2021-04-05] MEDS: Ondansetron 4 mg VIAL 2 MG/ML 2 ml VIAL IV PRN (10:32)
[2021-04-05] MEDS ORDERED: Iohexol 300 (CONTRAST) 10 ML SDV IV ONE (17:18)
[2021-04-05] MEDS ORDERED: Piperacillin/Tazobac ADVAN 3.375 GM in NS 0.9% 100 ml BAG 100 ML IV ONE (19:31)
[2021-04-05] MEDS ORDERED: Zosyn per Pharmacy NOTE FOLLOW UP SCH (20:00)
[2021-04-06] MEDS: ZOSYN 3.375 GM Q8H per EXTENDED INFUSION IV SCH ×3 (03:15→19:59)
[2021-04-06] MEDS ORDERED: Alteplase (CATHFLO) 2 MG VIAL IV ONE (04:10)
[2021-04-06 06:07] LABS: ABS Eosinophils 0.2 10^3/ul (0-0.6); ABS Lymphocytes 0.6 10^3/ul (1.0-4.8); ABS Monocytes 0.5 10^3/ul (0-0.8); ABS Neutrophils 3.1 10^3/ul (1.5-7.7); Eosinophil % 5.2 %; Hematocrit 29 % (35-47); Hemoglobin 9.4 g/dL (12.0-16.0); Lymphocyte % 12.4 %; Mean Corpuscular HGB Conc 33 g/dL (31-36); Mean Corpuscular Hemoglobin 29 pg (27-31); Mean Corpuscular Volume 89 fL (80-97); Mean Platelet Volume 7.8 fL (7.4-10.4); Platelet Count 413 10^3/uL (150-450); Red Blood Count 3.23 10^6 /uL (3.70-4.87); Red Cell Distribution Width 15 % (10-15); White Blood Count 4.5 10^3/uL (3.5-10.8)
[2021-04-06 06:18] LABS: Calcium 8.2 mg/dL (8.6-10.3); Magnesium 1.7 mg/dL (1.9-2.7); Potassium 3.5 mmol/L (3.5-5.0); eGFR CKD-EPI 66.7 (>60)
[2021-04-06] MEDS: Heparin 5000 UNITS/ML 1 mL VIAL SUBCUT SCH ×2 (06:41→13:53)
[2021-04-06] MEDS ORDERED: Magnesium Sulfate 2 gm BAG 2 GM/50 ML BAG IVPB ONE (08:23)
[2021-04-06] MEDS: Carbamide Peroxide 6.5% OTIC 15 ML BTL BOTH EARS SCH ×2 (09:14→22:09)
[2021-04-06] MEDS: Nystatin TOP POWDER 15 GM BTL TOPICAL SCH ×3 (09:16→22:09)
[2021-04-06 09:38] LABS: Albumin 2.4 g/dL (3.2-5.2); Albumin/Globulin Ratio 0.6 (1-3); C Reactive Protein 88.73 mg/L (<8.01); Direct Bilirubin 0.1 mg/dL (0.03-0.18); Indirect Bilirubin 0.2 mg/dL (0.3-1.0); Total Bilirubin 0.3 mg/dL (0.2-1.0); Total Protein 6.4 g/dL (6.4-8.9)
[2021-04-06] MEDS ORDERED: Buffered Lidocaine 1% SYRIN 1 ml INTRADERM ONE (15:38)
[2021-04-06] MEDS ORDERED: Lactated Ringers 1000 ml BAG 1,000 ML IV SCH (16:00)
[2021-04-06] MEDS ORDERED: Propofol 10 MG/ML 20 ML BTL ONE (16:23)
[2021-04-06] MEDS ORDERED: Lidocaine 2% PF 5 ML VIAL ONE (16:23)
[2021-04-06] MEDS ORDERED: Rocuronium 50 mg VIAL 10 mg/ml 5 ml VIAL (50 mg) ONE (16:25)
[2021-04-06] MEDS ORDERED: fentaNYL 250 mcg/5 ml 50 MCG/ML 5 ml VIAL (250 MCG) ONE (16:27)
[2021-04-06] MEDS ORDERED: Midazolam 2 mg/2 ml VIAL 1 mg/ml 2 ml VIAL (2 mg) ONE (16:27)
[2021-04-06] MEDS ORDERED: Iohexol 180 (CONTRAST) 20 ML SDV IV ONE (16:39)
[2021-04-07] MEDS: ZOSYN 3.375 GM Q8H per EXTENDED INFUSION IV SCH ×3 (01:59→17:50)
[2021-04-07 06:14] LABS: ABS Lymphocytes 0.7 10^3/ul (1.0-4.8); ABS Monocytes 0.3 10^3/ul (0-0.8); ABS Neutrophils 2.3 10^3/ul (1.5-7.7); Eosinophil % 0.8 %; Hematocrit 28 % (35-47); Hemoglobin 9.3 g/dL (12.0-16.0); Lymphocyte % 19.9 %; Mean Corpuscular HGB Conc 33 g/dL (31-36); Mean Corpuscular Hemoglobin 30 pg (27-31); Mean Corpuscular Volume 89 fL (80-97); Mean Platelet Volume 7.7 fL (7.4-10.4); Platelet Count 391 10^3/uL (150-450); Red Blood Count 3.14 10^6 /uL (3.70-4.87); Red Cell Distribution Width 15 % (10-15); White Blood Count 3.4 10^3/uL (3.5-10.8)
[2021-04-07 06:30] LABS: Calcium 7.7 mg/dL (8.6-10.3); Potassium 3.2 mmol/L (3.5-5.0); eGFR CKD-EPI 67.6 (>60)
[2021-04-07] MEDS ORDERED: Potassium Chlor 20 meq TAB.ER PO ONE (08:30)
[2021-04-07 08:55] LABS: Magnesium 1.9 mg/dL (1.9-2.7)
[2021-04-07] MEDS: Nystatin TOP POWDER 15 GM BTL TOPICAL SCH ×3 (10:32→21:20)
[2021-04-07] MEDS: Carbamide Peroxide 6.5% OTIC 15 ML BTL BOTH EARS SCH ×2 (10:33→21:19)
[2021-04-07] MEDS: Heparin 5000 UNITS/ML 1 mL VIAL SUBCUT SCH ×2 (15:20→21:30)
[2021-04-07] MEDS: Nystatin SUSPENSION 100,000 UNITS/ML UDC PO SCH ×2 (18:18→21:30)
[2021-04-08] MEDS: Calcium Carb (TUMS) 500 mg CHEW TAB PO PRN (01:47)
[2021-04-08] MEDS: ZOSYN 3.375 GM Q8H per EXTENDED INFUSION IV SCH ×2 (01:48→11:47)
[2021-04-08] MEDS: Heparin 5000 UNITS/ML 1 mL VIAL SUBCUT SCH ×2 (04:57→13:51)
[2021-04-08 07:22] LABS: ABS Basophils 0.1 10^3/ul (0-0.2); ABS Eosinophils 0.3 10^3/ul (0-0.6); ABS Lymphocytes 0.8 10^3/ul (1.0-4.8); ABS Monocytes 0.7 10^3/ul (0-0.8); ABS Neutrophils 3.6 10^3/ul (1.5-7.7); Eosinophil % 4.6 %; Hematocrit 27 % (35-47); Hemoglobin 8.9 g/dL (12.0-16.0); Lymphocyte % 15.2 %; Mean Corpuscular HGB Conc 33 g/dL (31-36); Mean Corpuscular Hemoglobin 29 pg (27-31); Mean Corpuscular Volume 89 fL (80-97); Mean Platelet Volume 7.6 fL (7.4-10.4); Platelet Count 368 10^3/uL (150-450); Red Blood Count 3.06 10^6 /uL (3.70-4.87); Red Cell Distribution Width 15 % (10-15); White Blood Count 5.5 10^3/uL (3.5-10.8)
[2021-04-08 07:50] VITALS: BP 126/56
[2021-04-08 07:52] LABS: Calcium 7.7 mg/dL (8.6-10.3); Magnesium 1.6 mg/dL (1.9-2.7); Potassium 3.6 mmol/L (3.5-5.0); eGFR CKD-EPI 68.5 (>60)
[2021-04-08] MEDS: Nystatin SUSPENSION 100,000 UNITS/ML UDC PO SCH ×2 (07:58→13:51)
[2021-04-08] MEDS: Nystatin TOP POWDER 15 GM BTL TOPICAL SCH (07:58)
[2021-04-08] MEDS: Carbamide Peroxide 6.5% OTIC 15 ML BTL BOTH EARS SCH (07:59)
[2021-04-08] MEDS ORDERED: Magnesium Sulfate IV 3 GM in NS 0.9% 100 ml BAG 100 ML IVPB ONE (13:54)
[2021-04-08] MEDS ORDERED: Magnesium Sulfate 2 GM IV (Premix) IVPB ONE (14:00)
[2021-04-08] MEDS ORDERED: Magnesium Sulfate 1 GM IV 1 GM/100 ML BAG IV ONE (15:00)
== END 2021-04-08 13:58 | disposition swing bed (61) | DRG 853 ==
LOC: ED 18:12 → SUATTDRO 21:55 → EDHOLD 21:55 → MEDTELE 03-22 02:41 → ICU 03-23 03:12 → MED 03-26 15:44
PROVIDERS: ADMIT Internal Medicine; ATTEND Hospitalist

== ENCOUNTER 2021-04-08 14:26 | Inpatient (IN) ==
[2021-04-08] MEDS ORDERED: Benzocaine (DENTAL) 10% TOP.GEL TOPICAL PRN (14:49)
[2021-04-08] MEDS ORDERED: Benzocaine/Menthol LOZ MT PRN (14:51)
[2021-04-08] MEDS ORDERED: Calcium Carb (TUMS) 500 mg CHEW TAB PO PRN (14:51)
[2021-04-08] MEDS ORDERED: Ondansetron ODT 4 mg TAB 4 MG TAB SL PRN (14:53)
[2021-04-08] MEDS: Nystatin SUSPENSION 100,000 UNITS/ML UDC PO SCH ×2 (16:25→20:51)
[2021-04-08] MEDS: Enoxaparin 40 MG/0.4 ML SYR SUBCUT SCH (16:25)
[2021-04-08] MEDS: Carbamide Peroxide 6.5% OTIC 15 ML BTL BOTH EARS SCH (20:54)
[2021-04-09] MEDS: Nystatin SUSPENSION 100,000 UNITS/ML UDC PO SCH ×4 (09:50→21:20)
[2021-04-09] MEDS: Carbamide Peroxide 6.5% OTIC 15 ML BTL BOTH EARS SCH ×2 (09:59→21:20)
[2021-04-09] MEDS: Enoxaparin 40 MG/0.4 ML SYR SUBCUT SCH (15:19)
[2021-04-10] MEDS: Nystatin SUSPENSION 100,000 UNITS/ML UDC PO SCH ×4 (08:07→20:46)
[2021-04-10] MEDS: Carbamide Peroxide 6.5% OTIC 15 ML BTL BOTH EARS SCH ×2 (08:08→20:50)
[2021-04-10] MEDS: Enoxaparin 40 MG/0.4 ML SYR SUBCUT SCH (14:27)
[2021-04-11] MEDS: Carbamide Peroxide 6.5% OTIC 15 ML BTL BOTH EARS SCH ×2 (09:59→19:31)
[2021-04-11] MEDS: Nystatin SUSPENSION 100,000 UNITS/ML UDC PO SCH ×4 (10:03→19:25)
[2021-04-11] MEDS: Enoxaparin 40 MG/0.4 ML SYR SUBCUT SCH (14:16)
[2021-04-12] MEDS: Nystatin SUSPENSION 100,000 UNITS/ML UDC PO SCH ×5 (07:27→19:34)
[2021-04-12] MEDS: Carbamide Peroxide 6.5% OTIC 15 ML BTL BOTH EARS SCH ×2 (07:27→19:34)
[2021-04-12] MEDS: Enoxaparin 40 MG/0.4 ML SYR SUBCUT SCH (14:43)
[2021-04-13] MEDS: Nystatin SUSPENSION 100,000 UNITS/ML UDC PO SCH ×4 (07:49→19:34)
[2021-04-13] MEDS: Carbamide Peroxide 6.5% OTIC 15 ML BTL BOTH EARS SCH ×2 (07:49→19:34)
[2021-04-13 09:04] LABS: Hematocrit 32 % (35-47); Hemoglobin 10.4 g/dL (12.0-16.0); Mean Corpuscular HGB Conc 33 g/dL (31-36); Mean Corpuscular Hemoglobin 29 pg (27-31); Mean Corpuscular Volume 88 fL (80-97); Mean Platelet Volume 6.5 fL (7.4-10.4); Platelet Count 602 10^3/uL (150-450); Red Blood Count 3.59 10^6 /uL (3.70-4.87); Red Cell Distribution Width 15 % (10-15); White Blood Count 6.1 10^3/uL (3.5-10.8)
[2021-04-13 09:23] LABS: Calcium 8.6 mg/dL (8.6-10.3); Magnesium 1.7 mg/dL (1.9-2.7); Potassium 3.9 mmol/L (3.5-5.0); eGFR CKD-EPI 85.7 (>60)
[2021-04-13 09:42] LABS: ABS Basophils 0.1 10^3/ul (0-0.2); ABS Eosinophils 0.5 10^3/ul (0-0.6); ABS Lymphocytes 0.8 10^3/ul (1.0-4.8); ABS Monocytes 0.6 10^3/ul (0-0.8); ABS Neutrophils 4.1 10^3/ul (1.5-7.7); Eosinophil % 7.6 %; Lymphocyte % 13.4 %
[2021-04-13] MEDS: Enoxaparin 40 MG/0.4 ML SYR SUBCUT SCH (13:51)
[2021-04-14 07:18] VITALS: BP 140/62
[2021-04-14] MEDS: Carbamide Peroxide 6.5% OTIC 15 ML BTL BOTH EARS SCH (08:10)
[2021-04-14 08:11] LABS: Hematocrit 29 % (35-47); Hemoglobin 9.6 g/dL (12.0-16.0); Mean Corpuscular HGB Conc 34 g/dL (31-36); Mean Corpuscular Hemoglobin 30 pg (27-31); Mean Corpuscular Volume 89 fL (80-97); Mean Platelet Volume 6.9 fL (7.4-10.4); Platelet Count 562 10^3/uL (150-450); Red Blood Count 3.23 10^6 /uL (3.70-4.87); Red Cell Distribution Width 15 % (10-15); White Blood Count 6.5 10^3/uL (3.5-10.8)
[2021-04-14] MEDS: Nystatin SUSPENSION 100,000 UNITS/ML UDC PO SCH ×2 (08:15→15:30)
[2021-04-14 08:20] LABS: Calcium 8.5 mg/dL (8.6-10.3); Magnesium 1.7 mg/dL (1.9-2.7)
[2021-04-14 09:04] LABS: ABS Basophils 0.1 10^3/ul (0-0.2); ABS Eosinophils 0.4 10^3/ul (0-0.6); ABS Lymphocytes 0.8 10^3/ul (1.0-4.8); ABS Monocytes 0.8 10^3/ul (0-0.8); ABS Neutrophils 4.4 10^3/ul (1.5-7.7); Eosinophil % 6.4 %; Lymphocyte % 12.5 %
[2021-04-14 09:07] LABS: RBC Morphology Normal (Normal)
[2021-04-14] MEDS ORDERED: Simethicone SUSP ORALSYR 66.66 MG/ML PO ONE (10:17)
[2021-04-14 14:23] LABS: Rapid COVID-19 Molecular Undetected (Undetected)
[2021-04-14] MEDS: Enoxaparin 40 MG/0.4 ML SYR SUBCUT SCH (15:31)
== END 2021-04-14 16:30 | DRG 690 ==
LOC: SUATTDRO 14:26 → MED 14:26
PROVIDERS: ADMIT Hospitalist; ATTEND Internal Medicine